=== PATIENT | female | born 2000 | race African-American/Black ===

== ENCOUNTER 2022-10-06 11:49 | Emergency (ER) | payer SELFPAY ==
[~2022-10-06] VITALS: Ht 165.1 cm; Wt 52.0 kg
[2022-10-06 11:56] VITALS: BP 109/77
[2022-10-06 12:22] LABS: CLARITY URINE CLOUDY (CLEAR); COLOR URINE YELLOW (YELLOW); KETONES URINE 1+ (NEGATIVE); LEUKOCYTE ESTERASE URINE 1+ (NEGATIVE); NITRITE URINE NEGATIVE (NEGATIVE); OCCULT BLOOD URINE 3+ (NEGATIVE); PROTEIN URINE TRACE (NEGATIVE); SPECIFIC GRAVITY URINE 1.024 (1.005-1.030)
[2022-10-06] MEDS ORDERED: CEFTRIAXONE SODIUM 500 MG/VIAL IM ONE (12:45)
[2022-10-06] MEDS ORDERED: AZITHROMYCIN 500 MG TABLET PO ONE (12:45)
[2022-10-08 05:13] LABS: HIV SCREEN 4G Non Reactive (Non Reactive)
[2022-10-09 04:12] LABS: NEISSERIA GONORRHOEAE NAA Negative (Negative)
== END 2022-10-06 14:07 | disposition home or self-care (01) ==
LOC: ER 13:43
DX: A64 Unspecified sexually transmitted disease (principal)
CPT/HCPCS: 81003; 81025; 86592; 87389; 87491; 87591; 96372; 99283; J0696